=== PATIENT | female | born 1995 | race Asian ===

== ENCOUNTER 2019-02-13 07:42 | Day surgery (SDC) | payer OTHER ==
[~2019-02-13] VITALS: Ht 147.3 cm; Wt 62.0 kg
[2019-02-13] VITALS (14 sets, daily range): BP systolic 98–118; BP diastolic 58–79; PULSE 66–77; RESP 12–28; Ht 147.3 cm; Wt 62.0 kg
[~2019-02-13 07:42] MED LIST: CEFAZOLIN 2 GM/50 ML (PMX) 50 ML IVPB ONE; SOD CHLORIDE 0.9% 1,000 ML IV SCH
[2019-02-13] MEDS ORDERED: ACETAMINOPHEN 500 MG TAB PO ONE (08:00)
--- NOTE | 2019-02-13 10:42 | PREAC ---
Date/Time of Note Date/Time of Note DATE: 02/13/19 TIME: 10:41 Anesthesia Eval and Record Evaluation Time Pre-Procedure Interview DATE: 02/13/19 TIME: 10:41 Age 23 Sex female NPO: 8 hrs Preoperative diagnosis R breast mass Planned procedure R breast mass excision Past Medical History Past Medical History: None Surgery & Anesthesia Issues No known issue Meds Anticoagulation: No Beta Ashley within 24 hr: No Reason Beta Ashley not given: Pt. not on B-Ashley No Active Prescriptions or Reported Meds Current Medications Sodium Chloride 1,000 ml @ 75 mls/hr [id number] IV ; Start 02/13/19 at 06:00; Stop 02/13/19 at 18:00 Meds reviewed: Yes Allergies Coded Allergies: peanut (Verified Allergy, Severe, RASHES, 02/13/19) Allergies Reviewed: Yes Labs/Studies Labs Reviewed: Reviewed by anesthesiologist test: Negative Pre-procedure Exam Last vitals Vital Signs Date Temp Pulse Resp B/P (MAP) Pulse Ox O2 O2 Flow FiO2 Time Delivery Rate 02/13/19 98.0 77 16 112/58 98 Room Air 09:02 (76) Airway: Adequate mouth opening, Adequate thyromental dist Mallampati: Mallampati II Teeth: Abnormal (dentures removed; multiple missing teeth, some broken teeth on top) Lung: Normal Heart: Normal ASA Physical Status ASA physical status: 1 Emergency: None Planned Anesthetic General/MAC: LMA Pre-operative Attestations Prior to commencing anesthesia and surgery, the patient was re-evaluated, there was verification of: *The patient's identity *The results of appropriate recent lab work and preoperative vital signs *The above evaluation not changing prior to induction *Anesthetic plan, risk benefits, alternative and complications discussed with patient/family; questions answered; patient/family understands, accepts and wishes to proceed. NOA TATE February 13, 2019 10:42
[2019-02-13] MEDS ORDERED: BUPIVACAINE 0.5%/EPI (SDV) 30 ML INJ ONE (10:45)
[2019-02-13] MEDS ORDERED: MIDAZOLAM 1 MG/ML 2 ML INJ ONE (11:00)
[2019-02-13] MEDS ORDERED: DIPHENHYDRAMINE 50 MG INJ IV PRN (11:00)
[2019-02-13] MEDS ORDERED: ONDANSETRON 4 MG INJ IV PRN (11:00)
[2019-02-13] MEDS ORDERED: OXYCODONE/ACETAMINOPHEN (5/325) TAB PO PRN ×2 (11:00)
[2019-02-13] MEDS ORDERED: HYDROmorphONE 1 MG/5 ML IV SYRINGE IV PRN ×2 (11:00)
[2019-02-13] MEDS ORDERED: FENTAnyl 50 MCG/ML VIAL IV PRN ×2 (11:00)
[2019-02-13] MEDS ORDERED: ALBUTEROL 0.083% (NEB) 2.5 MG/3 ML AMP HHN PRN (11:00)
[2019-02-13] MEDS ORDERED: LABETALOL HCL 20MG INJ IV PRN (11:00)
[2019-02-13] MEDS ORDERED: FENTAnyl 50 MCG/ML VIAL ONE (11:00)
[2019-02-13] MEDS ORDERED: MEPERIDINE 25 MG INJ IV PRN (11:00)
[2019-02-13] MEDS ORDERED: morphine 2 MG INJ IV PRN ×2 (11:00)
[2019-02-13] MEDS ORDERED: FAMOTIDINE 20 MG INJ ONE (11:16)
[2019-02-13] MEDS ORDERED: PROPOFOL 40 ML ONE (11:16)
[2019-02-13] MEDS ORDERED: CEFAZOLIN 1 GM INJ ONE (11:16)
[2019-02-13] MEDS ORDERED: LIDOCAINE 2% (SDV) 5 ML INJ ONE (11:16)
[2019-02-13] MEDS ORDERED: ONDANSETRON 4 MG INJ ONE (11:17)
[2019-02-13] MEDS ORDERED: PHENYLephrine (100 MCG/ML) 10ML SYG ONE (11:17)
--- NOTE | 2019-02-13 11:37 | SIPON ---
Date/Time of Note Date/Time of Note DATE: 02/13/19 TIME: 11:35 Operative Report Preoperative Diagnosis Right breast mass Postoperative Diagnosis Same Operation/Procedure Performed Excisional biopsy of right breast mass Surgeon see signature line speech language pathology assistant Dr Garcia Anesthesia: general Estimated blood loss: 0 - 10 ml's Transfusion Required none Specimen Right breast mass Grafts/Implants none Complications none AMERICO BILL MD February 13, 2019 11:37
--- NOTE | 2019-02-13 11:56 | PAC ---
Date/Time of Note Date/Time of Note DATE: 02/13/19 TIME: 11:55 Post-Anesthesia Notes Post-Anesthesia Note Last documented vital signs Vital Signs Date Temp Pulse Resp B/P Pulse Ox O2 O2 Flow FiO2 Time (MAP) Delivery Rate 02/13/19 98.0 97.9 77 74 16 17 112/58 98 100 Room 09:02 115 (76) 118 Air face 0 /79 mask 6L Activity: WNL Respiratory function: WNL Cardiovascular function: WNL Mental status: Baseline Pain reasonably controlled: Yes Hydration appropriate: Yes Nausea/Vomiting absent: Yes NOA TATE February 13, 2019 11:56
[2019-02-13] MEDS ORDERED: HYDROCODONE/APAP (7.5/325) TAB PO PRN (12:00)
[2019-02-13] MEDS: HYDROmorphONE 1 MG/5 ML IV SYRINGE IV PRN ×2 (12:06→12:14)
--- NOTE | 2019-02-13 12:12 | OPR ---
DATE OF OPERATION: 02/13/2019 PREOPERATIVE DIAGNOSIS: Right breast mass. POSTOPERATIVE DIAGNOSIS: Right breast mass. PROCEDURE: Excisional biopsy of right breast mass. ANESTHESIA: General. ANESTHESIOLOGIST: Nurse board certified behavioral analyst, Nathaly Bang SURGEON: Dr. Luke STOCK CLIPPER: Dr. Garcia INDICATIONS FOR PROCEDURE: The patient is a 23-year-old female who presented with a palpable mass in her right breast. It was somewhat intermittently tender. She requested excision. She consented an d was scheduled for surgery. DESCRIPTION OF PROCEDURE: The patient was brought to the operating theater, placed under general ane sthesia. The right breast was prepped and draped in the usual sterile fashion. A small curvilinear incision was made directly over the palpable mass. Subcutaneous tissue and subsequently breast tissu e was dissected with cautery down to the palpable mass. The mass was identified. 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 It was enucleated with a gloved finger, and the swapna l transection of the tissue was accomplished with cautery. Specimen was removed and sent for [facility] pathologic analysis. The wound was irrigated. Minimal bleeding was controlled with cautery. The skin was then reapproximated with a deep dermal layer of 4-0 Vicryl sutures in interrupted fashion, followed by final skin approximation with 5-0 PDS sutures in subcuticular fashion, and benzoin and St lauren-Strips were applied. A sterile dressing was then also applied. The patient tolerated the proced ure well. The estimated blood loss was approximately 10 mL. There were no complications, and the pa tient was transported in stable condition to the recovery room, where a circumferential compression d ressing was applied. Dictated By: AMERICO PATEL/RITCHIE Conf#: [id number] DID#: [id number]
== END 2019-02-13 13:28 | disposition home or self-care (01) ==
LOC: SDS 07:42
PROVIDERS: ATTEND Surgery Surgical Oncology
DX: D24.1 Benign neoplasm of right breast (principal)
CPT/HCPCS: 19120; J0690; J1170; J2250; J2370; J2405; J3010; Z7610